=== PATIENT | male | born 1965 | race Caucasian/White ===

== ENCOUNTER 2022-02-28 13:59 | Day surgery (SDC) | payer OTHER ==
[2022-02-28] MEDS ORDERED: LIDOCAINE HCL 2% 100 MG/5 ML IJ ONE (14:00)
[2022-02-28] MEDS ORDERED: Depo-Medrol 40 MG/ML IM ONE (14:00)
[2022-02-28] MEDS ORDERED: DIPRIVAN 200 MG/20 ML IV ONE (15:35)
[2022-02-28] MEDS ORDERED: Lactated Ringers 1,000 ML IV ONE (15:44)
--- NOTE | 2022-02-28 16:27 | XRAY ---
Indication: Bilateral L4-S1 MBB. Intraoperative fluoroscopy provided for 21 seconds. Single digital spot image submitted for interpretation demonstrates posterior needle tips projecting over the expected left and right L4-S1 nerve roots. Correlate with intraoperative findings/report.
--- NOTE | 2022-02-28 16:44 | XRAY ---
21 seconds of fluoroscopy was used in surgery for a bilateral L4-S1 MBB.
== END 2022-02-28 16:10 | disposition home or self-care (01) ==
LOC: SDC-PAIN 13:59
PROVIDERS: ATTEND Psychiatry & Neurology Pain Medicine
DX: M47.816 Spondylosis without myelopathy or radiculopathy, lumbar region (principal); Z79.899 Other long term (current) drug therapy
CPT/HCPCS: 64492; 64494; 72020; 77002; J1030; J2704

== ENCOUNTER 2022-03-21 09:42 | Day surgery (SDC) | payer OTHER ==
[2022-03-21] MEDS ORDERED: Marcaine Mpf 0.5% Vial 30 Ml IJ ONE (09:43)
[2022-03-21] MEDS ORDERED: Depo-Medrol 40 MG/ML IM ONE (09:43)
[2022-03-21] MEDS ORDERED: DIPRIVAN 200 MG/20 ML IV ONE (10:56)
[2022-03-21] MEDS ORDERED: Lactated Ringers 1,000 ML IV ONE (12:44)
--- NOTE | 2022-03-21 13:18 | XRAY ---
Indication: Bilateral L4-S1 MBB. Intraoperative fluoroscopy provided for 17 seconds. Single digital spot image submitted for interpretation demonstrate posterior needle tips projecting over the expected left and right L4-S1 nerve roots. Correlate with intraoperative findings/report.
--- NOTE | 2022-03-21 13:35 | XRAY ---
17 seconds fluoroscopy time in surgery for bilateral L4-S1 MBB.
== END 2022-03-21 11:30 | disposition home or self-care (01) ==
LOC: SDC-PAIN 09:42
PROVIDERS: ATTEND Psychiatry & Neurology Pain Medicine
DX: M47.816 Spondylosis without myelopathy or radiculopathy, lumbar region (principal); Z79.899 Other long term (current) drug therapy
CPT/HCPCS: 64493; 64494; 72020; 77002; J1030; J2704

== ENCOUNTER 2022-04-25 12:41 | Day surgery (SDC) | payer OTHER ==
[2022-04-25] MEDS ORDERED: Depo-Medrol 40 MG/ML IM ONE (12:42)
[2022-04-25] MEDS ORDERED: XYLOCAINE-MPF 1% 5ML SDV IJ ONE (12:42)
[2022-04-25] MEDS ORDERED: Marcaine Mpf 0.5% Vial 30 Ml IJ ONE (12:42)
[2022-04-25] MEDS ORDERED: VERSED 5 MG/5 ML ONE (14:34)
[2022-04-25] MEDS ORDERED: DIPRIVAN 200 MG/20 ML IV ONE (14:51)
[2022-04-25] MEDS ORDERED: MORPHINE SULFATE 2 MG INJ ONE (15:08)
--- NOTE | 2022-04-25 16:52 | XRAY ---
Indication: Right L4-S1 RFA. Intraoperative fluoroscopy provided for 18 seconds. 3 digital spot image submitted for interpretation images demonstrates posterior needle tips projecting over the expected right L4-S1 nerve roots. Correlate with intraoperative findings/report.
--- NOTE | 2022-04-25 16:56 | XRAY ---
18 seconds of fluoroscopy was used in surgery for a right L4-S1 RFA.
[2022-04-25] MEDS ORDERED: Lactated Ringers 1,000 ML IV ONE (17:38)
== END 2022-04-25 15:15 | disposition home or self-care (01) ==
LOC: SDC-PAIN 12:41
PROVIDERS: ATTEND Psychiatry & Neurology Pain Medicine
DX: M47.816 Spondylosis without myelopathy or radiculopathy, lumbar region (principal); Z79.899 Other long term (current) drug therapy
CPT/HCPCS: 64635; 64636; 72100; 77002; J1030; J2250; J2270; J2704

== ENCOUNTER 2022-05-02 11:03 | Day surgery (SDC) | payer OTHER ==
[2022-05-02] MEDS ORDERED: Depo-Medrol 40 MG/ML IM ONE (11:04)
[2022-05-02] MEDS ORDERED: BUPIVACAINE 0.5% VIAL IJ ONE (11:04)
[2022-05-02] MEDS ORDERED: LIDOCAINE HCL 1% 50 MG/5 ML VL PF IJ ONE (11:04)
[2022-05-02] MEDS ORDERED: DIPRIVAN 200 MG/20 ML IV ONE ×2 (12:40→12:51)
[2022-05-02] MEDS ORDERED: Ketamine HCl 50 MG/ML ONE (12:46)
--- NOTE | 2022-05-02 13:12 | XRAY ---
Indication: Left L4-S1 RFA. Intraoperative fluoroscopy provided for 40 seconds. 3 digital spot images submitted for interpretation demonstrates posterior needle tips projecting over the expected left L4-S1 nerve roots. Correlate with intraoperative findings/report.
[2022-05-02] MEDS ORDERED: Lactated Ringers 1,000 ML IV ONE (14:33)
--- NOTE | 2022-05-02 14:39 | XRAY ---
40 seconds of fluoroscopy was used in surgery for a left L4-S1 RFA.
== END 2022-05-02 13:10 | disposition home or self-care (01) ==
LOC: SDC-PAIN 11:03
PROVIDERS: ATTEND Psychiatry & Neurology Pain Medicine
DX: M47.816 Spondylosis without myelopathy or radiculopathy, lumbar region (principal); Z79.899 Other long term (current) drug therapy
CPT/HCPCS: 64635; 64636; 72100; 77002; J1030; J2001; J2704

== ENCOUNTER 2022-06-27 14:51 | Day surgery (SDC) | payer OTHER ==
[2022-06-27] MEDS ORDERED: XYLOCAINE-MPF 1% 5ML SDV IJ ONE (14:52)
[2022-06-27] MEDS ORDERED: Depo-Medrol 40 MG/ML IM ONE (14:52)
[2022-06-27] MEDS ORDERED: BUPIVACAINE 0.5% VIAL IJ ONE (14:52)
--- NOTE | 2022-06-27 20:25 | XRAY ---
Indication: Bilateral SI joint injection. Intraoperative fluoroscopy provided for 20 seconds. 4 digital spot images submitted for interpretation demonstrates posterior needle tips projecting over the left and right SI joint. Correlate with intraoperative findings/report.
--- NOTE | 2022-06-28 09:13 | XRAY ---
20 seconds of fluoroscopy was used in surgery for a bilateral sacroiliac joint injection.
== END 2022-06-27 17:35 | disposition home or self-care (01) ==
LOC: SDC-PAIN 14:51
PROVIDERS: ATTEND Psychiatry & Neurology Pain Medicine
DX: M46.1 Sacroiliitis, not elsewhere classified (principal); Z79.899 Other long term (current) drug therapy
CPT/HCPCS: 27096; 72202; 77002; G0260; J1030

== ENCOUNTER 2023-01-30 16:10 | Day surgery (SDC) | payer OTHER ==
[2023-01-30] MEDS ORDERED: LIDOCAINE HCL 1% 50 MG/5 ML VL PF IJ ONE (16:11)
[2023-01-30] MEDS ORDERED: Sodium Chloride 0.9(Preservative Free) 10 ML IJ ONE (16:11)
[2023-01-30] MEDS ORDERED: Depo-Medrol 40 MG/ML IM ONE (16:11)
[2023-01-30] MEDS ORDERED: Lactated Ringers 1,000 ML IV ONE (18:30)
--- NOTE | 2023-01-30 19:17 | XRAY ---
Indication: Lumbar KEESHA. Intraoperative fluoroscopy provided for 17 seconds. 3 digital spot images submitted for interpretation demonstrates posterior needle tip projecting projecting posterior to the lumbosacral junction interspace. Small amount of contrast injected for needle tip placement. Correlate with intraoperative findings/report.
--- NOTE | 2023-01-31 09:04 | XRAY ---
17 seconds of fluoroscopy was used in surgery for a lumbar KEESHA.
== END 2023-01-30 18:42 | disposition home or self-care (01) ==
LOC: SDC-PAIN 16:10
PROVIDERS: ATTEND Psychiatry & Neurology Pain Medicine
DX: M54.16 Radiculopathy, lumbar region (principal); Z79.899 Other long term (current) drug therapy
CPT/HCPCS: 62323; 72100; 77003; J1030; J2001; Q9966